=== PATIENT | female | born 1960 | race Caucasian/White ===

== ENCOUNTER 2018-02-05 06:14 | Emergency (ER) | payer MEDICAID, OTHER ==
[~2018-02-05] VITALS: Ht 162.6 cm; Wt 90.7 kg
[2018-02-05 06:19] VITALS: BP 145/84
== END 2018-02-05 06:59 | disposition home or self-care (01) ==
LOC: ER 06:19
DX: M79.1 Myalgia (principal); M54.2 Cervicalgia; I10 Essential (primary) hypertension; E04.1 Nontoxic single thyroid nodule
CPT/HCPCS: A4606; Z7502; Z7610

== ENCOUNTER 2019-01-20 20:04 | Emergency (ER) | payer OTHER, MEDICAID ==
[~2019-01-20] VITALS: Ht 167.6 cm; Wt 88.5 kg
--- NOTE | 2019-01-20 20:25 | NUR ---
BIB SELF TO ER BED 9 C/C OF BACK PAIN X 4DAYS WORSE TODAY. AA/OX 4. ABULATED WITH STABLE GAIT. SKIN PINK, WARM, DRY. MOVES ALL EXTREMITIES WELL. VSS. NAD. PT DENIES ANY FURTHER MEDICAL COMPLAINTS. NO DEFORMITIES NOTED. WILL CONTINUE TO MONITOR.
[2019-01-20] MEDS ORDERED: KETOROLAC TROMETHAMINE INJ 30 MG/ML VIAL ONE (20:50)
--- NOTE | 2019-01-20 20:55 | NUR ---
resting comfortably with family at bedside. clara/katt. irving. gama.
[2019-01-20] MEDS ORDERED: KETOROLAC TROMETHAMINE INJ 30 MG/ML VIAL IM ONE (21:00)
[2019-01-20 21:23] VITALS: BP 128/76
--- NOTE | 2019-01-20 21:23 | NUR ---
Patient discharged to home in stable condition. Written and verbal after care instructions given. Patient verbalizes understanding of instruction. ambulated with stable gait. irving. gama.
== END 2019-01-20 21:24 | disposition home or self-care (01) ==
LOC: ER 20:04
DX: S29.012A Strain of muscle and tendon of back wall of thorax, initial encounter (principal); Z98.890 Other specified postprocedural states; X58.XXXA Exposure to other specified factors, initial encounter; Y93.89 Activity, other specified; Y92.89 Other specified places as the place of occurrence of the external cause; Y99.8 Other external cause status
CPT/HCPCS: 93005; 96372; 99283; J1885

== ENCOUNTER 2019-04-05 12:13 | Emergency (ER) | payer MEDICAID, OTHER ==
[~2019-04-05] VITALS: Ht 170.2 cm; Wt 88.5 kg
--- NOTE | 2019-04-05 13:00 | NUR ---
patient came to the ER c/p left foot pain s/p stepped on a rock. On room air, breathing evenly and unlabored. kept comfortable, will continue to monitor accordingly.
[2019-04-05 14:00] VITALS: BP 110/56
--- NOTE | 2019-04-05 14:01 | NUR ---
Patient discharged to home in stable condition. Written and verbal after care instructions given. Patient verbalizes understanding of instruction.
== END 2019-04-05 14:01 | disposition home or self-care (01) ==
LOC: ER 12:16
DX: S90.32XA Contusion of left foot, initial encounter (principal); Z98.890 Other specified postprocedural states; W22.8XXA Striking against or struck by other objects, initial encounter; Y93.02 Activity, running; Y92.89 Other specified places as the place of occurrence of the external cause; Y99.8 Other external cause status
CPT/HCPCS: 73620-TC